=== PATIENT | male | born 1970 | race Caucasian/White ===

== ENCOUNTER 2019-06-14 17:29 | Emergency (ER) | payer OTHER ==
--- OUTSIDE RECORDS SUMMARY | 2019-06-14 18:23 | XMS REPORT | Continuity of Care Document ---
:1970 External Reference #:[id number] Author Name Kolby Hogue M.D. Address [address] [facility] [address] [place] [address] Care Team Providers Name Role Phone HCP given Care Team Information Expressive Art Therapist Unavailable Sleep [facility] - Sleep Disorder Care Team Information Expressive Art Therapist [phone] [facility] - Spec/[facility], Care Team Information Expressive Art Therapist Cardiovascular Yolande Baron, RD, CDN, Cde - Care Team Information Expressive Art Therapist Dietitian, Registered Problems Active Problems Provider Date Benign essential hypertension Kolby Hogue M.D. Onset: 03/03/2010 Pure hypercholesterolemia Kolby Hogue M.D. Onset: 03/03/2010 Chronic prostatitis Kolby Hogue M.D. Onset: 03/03/2010 Generalized anxiety disorder Kolby Hogue M.D. Onset: 03/03/2010 Dizziness and giddiness Richmond Armstrong D.ONima Onset: 01/26/2014 Essential hypertension Kolby Hogue M.D. Onset: 11/04/2015 Pruritus of skin Kolby Hogue M.D. Onset: 05/06/2016 Reduced libido Kolby Hogue M.D. Onset: 05/06/2016 Dysthymia Kolby Hogue M.D. Onset: 05/06/2016 Social History Type Date Description Comments Sex Unknown Tobacco Use Reviewed: 05/01/15 Never Smoked Cigarettes Smoking Status Reviewed: 03/17/19 Never Smoked Cigarettes ETOH Use Occasionally consumes 3-4 drinks/wk alcohol Tobacco Use Start: Unknown Non Smoker Exercise Type/Frequency Does not exercise Allergies, Adverse Reactions, Alerts Active Allergies Reaction Severity Comments Date No Known Drug Allergy 03/03/2010 Medications Active Medications SIG Qnty Indications Ordering Provider Date Multi Vitamin 1 by mouth every Unknown 06/08/2019 Tablets day Escitalopram Oxalate 1 tablet daily; 90tabs F34.1 Kolby Hogue, 2018 10mg for mood M.D. Tablets F41.1 Vardenafil HCL 1 tablet daily as 6tabs N52.9 Kolby Hogue, 04/24/2019 20mg needed for ED M.D. Tablets Co Q-10 Kolby Hogue, 03/16/2019 30mg Capsules M.D. Rosuvastatin Calcium take one tablet by 90tabs E78.00 Kolby Hogue, 07/2019 20mg mouth every day for M.D. Tablets high cholesterol to replace 10mg Buspirone HCL take one tablet by 180tabs F41.1 Kolby Hogue, 08/29/2018 10mg mouth twice a day M.D. Tablets for anxiety Triamcinolone Apply Thin Layer To 80units L29.9 Kolby Hogue, 2016 Acetonide Affected Area On M.D. 0.1% Cream Arms And Back Of Neck Two Times A Day as Needed For Itchy Rash Doxepin HCL take one capsule by 90caps L29.9 Kolby Hogue, 11/28/2016 50mg Capsules mouth every evening M.D. for itch Losartan Potassium take one tablet by 90tabs I10 Kolby Hogue, 2010 50mg mouth every day for M.D. Tablets high blood pressure Naproxen 1 by mouth twice a 180tabs 601.1 Kolby Hogue, 03/03/2010 500mg Tablets day prn; take w/ M.D. food Blood Pressure Monitor automated digital 1units I10 Kolby Hogue, 03/03 unit for upper arm; M.D. Misc use as directed Immunizations CPT Code Status Date Vaccine Lot # [id number] Given 05/24/2019 Hep B Immunization, Adult [id number] 83939 Given 03/23/2019 Hep B Immunization, Adult [id number] 31641 Given 03/17/2019 Menactra Menningitis Vaccine [id number] 03715 Given 03/17/2019 Td Immunization [id number] 45492 Given 03/17/2019 MMR Virus Immunization [id number] 33316 Given 03/17/2019 Hep A, Adult [id number] 80336 Given 06/01/2018 Influenza Virus Vaccine, Quadrivalent, Split, [id number] Preservative Free 90192 Given 05/28/2017 Influenza Virus Vaccine, Quadrivalent, Split, [id number] Preservative Free 22073 Given 06/26/2013 Flu, Split Virus 3Yrs [id number] 94645 Given 08/28/2011 Flu, Split Virus 3Yrs [id number] 92115 Given 03/03/2010 Adacel or Boostrix, TDaP [id number] Vital Signs Date Vital Result Comment 06/09/2019 10:20am BP Systolic 114 mmHg BP Diastolic 80 mmHg Weight 206.00 lb 04/24/2019 8:54am BP Systolic 126 mmHg BP Diastolic 82 mmHg BP Systolic Recheck 112 mmHg R arm sitting BP Diastolic Recheck 68 mmHg R arm sitting BP Systolic Standing Resting Right Arm 118 mmHg BP Diastolic Standing Resting Right Arm 80 mmHg Heart Rate 72 /min reg Weight 212.00 lb w/boots Results Test Date Facility Test Result H/L Range Note Lipid Profile 05/24/2019 [facility] Triglycerides 181 mg/dL 1 (Trig/Chol/HDL) [phone] Cholesterol 164 mg/dL 2 HDL Cholesterol 49.6 mg/dL 3 LDL Cholesterol 78 mg/dL 4 Laboratory test finding 05/24/2019 [facility] Alt 28 U/L Normal 7-52 5 [phone] Basic Metabolic Panel 05/24/2019 [facility] Sodium 139 mmol/L Normal 135-145 [phone] Potassium 4.3 mmol/L Normal 3.5-5.0 Chloride 106 mmol/L Normal 101-111 Co2 Carbon Dioxide 27 mmol/L Normal 22-32 Anion Gap 6 mmol/L Normal 2-11 Glucose 102 mg/dL High 70-100 Blood Urea Nitrogen 15 mg/dL Normal 6-24 Creatinine 1.00 mg/dL Normal 0.67-1.17 BUN/Creatinine Ratio 15.0 Normal 8-20 Calcium 9.5 mg/dL Normal 8.6-10.3 Egfr Non- 79.8 >60 Egfr 96.5 >60 6 Quantiferon Gold 03/17/2019 [facility] QuantiFERON-Tb Gold Negative Negative 7 TB [phone] Plus TB1 Ag minus Nil Result -0.03 IU/mL TB2 Ag minus Nil Result -0.05 IU/mL TB Mitogen minus Nil Result > 10.00 IU/mL TB Nil Result 0.18 IU/mL 8 Poliovirus AB Immune 03/17/2019 [facility] Polio Virus Type 1 1:16 Status [phone] Antibody Polio Virus Type 3 Antibody 1:64 9 Varicella Zoster 03/17/2019 [facility] Varicella-Zoster IgG Positive 10 Igg AB [phone] Antibody Varicella IgG Antibody Index 1.5 11 Laboratory test 03/17/2019 [facility] Hepatitis B Not Immune Abnormal Immune finding [phone] Khushboo AB Titer 1 Desirable: <150 Borderline High: 150-199 High: 200-499 Very High: >500 2 Desirable: <200 Borderline High: 200-239 High: >239 3 Low: <40 Desirable: 40-60 High: >60 4 Desirable: <100 Near Optimal: 100-129 Borderline High: 130-159 High: 160-189 Very High: >189 5 FASTING 12 HOUR 6 Because ethnic data is not always readily available, this report includes an eGFR for both -Americans and non- Americans. The National Kidney Disease Education Program (NKDEP) does not endorse the use of the MDRD equation for patients that are not between the ages of 18 and 70, are , have extremes of body size, muscle mass, or nutritional status, or are non- or non-. According to the National Kidney Foundation, irrespective of diagnosis, the stage of the disease is based on the level of kidney function: Stage Description GFR(mL/min/1.73 m(2)) 1 Kidney damage with normal or decreased GFR 90 2 Kidney damage with mild decrease in GFR 60-89 3 Moderate decrease in GFR 30-59 4 Severe decrease in GFR 15-29 5 Kidney failure <15 (or dialysis) 7 No interferon-gamma response to M. tuberculosis antigens was detected. Infection with M. tuberculosis is unlikely. A single negative result does not exclude infection with M. tuberculosis. In patients at high risk for M.tuberculosis infection, a second test should be considered in accordance with the 2017 ATS/IDSA/CDC Clinical Practice Guidelines for Diagnosis of Tuberculosis in Adults and Children [Lewinsohn DM et. al. Clin. Infect. Dis. 2017;64(2):111-115]. The reference range for the 'TB1 Ag minus Nil Result' and 'TB2 Ag minus Nil Result' is an Interferon-gamma level <0.35 IU/mL. 8 Test Performed by: [place] [address] 9 REFERENCE RANGE: POLIO 1 TITER: <1:8 POLIO 3 TITER: <1:8 The presence of neutralizing serum antibodies (titers of 1:8 up to >1:128) against polioviruses implies lifelong immunity. Some persons without detectable titers (<1:8) may also be immune as demonstrated by elicitation of a secondary-type serum antibody response upon rechallenge with live polio vaccine. This test was developed and its analytical performance characteristics have been determined by [facility]. It has not been cleared or approved by FDA. This assay has been validated pursuant to the CLIA regulations and is used for clinical purposes. Test Performed by: [facility] [address] [place] [address] 10 Results suggest response to immunization or prior exposure to the virus. REFERENCE VALUE Vaccinated: Positive (>=1.1 AI) Unvaccinated: Negative (<=0.8 AI) 11 Test Performed by: [address] [address] Procedures Date Code Description Status 03/17/2019 97714 Brief Emotional/Behav Assessment W/ Scoring Doc Per Completed [facility] Medical Devices Description No Information Available Encounters Type Date Location Provider Dx Diagnosis Office Visit 04/24/2019 Main Office Kolby Hogue, F34.1 Dysthymic disorder 8:30a M.D. F41.1 Generalized anxiety disorder I10 Essential (primary) hypertension E78.00 Pure hypercholesterolemia, unspecified N52.9 Male erectile dysfunction, unspecified Office Visit 03/17/2019 2:00p Main Office Pamela Carlson Z02.89 Encounter for other P.A. administrative examinations Z23 Encounter for immunization Z41.8 Encntr for oth proc for purpose oth than [facility] Z68.31 Body mass index (BMI) 31.0-31.9, adult Assessments Date Code Description Provider 06/09/2019 F34.1 Dysthymic disorder Kolby Hogue M.D. 06/09/2019 F41.1 Generalized anxiety disorder Kolby Hogue M.D. 06/09/2019 E78.00 Pure hypercholesterolemia, unspecified Kolby Hogue M.D. 06/09/2019 I10 Essential (primary) hypertension Kolby Hogue M.D. 06/09/2019 R73.01 Impaired fasting glucose Kolby Hogue M.D. 06/09/2019 Z23 Encounter for immunization Kolby Hogue M.D. 05/24/2019 Z23 Encounter for immunization Nurse's Schedule 05/24/2019 Z41.8 Encounter for other procedures for purposes Nurse's Schedule other than [facility] 04/24/2019 F34.1 Dysthymic disorder Kolby Hogue M.D. 04/24/2019 F41.1 Generalized anxiety disorder Kolby Hogue M.D. 04/24/2019 I10 Essential (primary) hypertension Kolby Hogue M.D. 04/24/2019 E78.00 Pure hypercholesterolemia, unspecified Kolby Hogue M.D. 04/24/2019 N52.9 Male erectile dysfunction, unspecified Kolby Hogue M.D. 03/23/2019 Z23 Encounter for immunization Nurse's Schedule 03/23/2019 Z41.8 Encounter for other procedures for purposes Nurse's Schedule other than remed 03/17/2019 Z02.89 Encounter for other administrative Arianne Rose examinations 03/17/2019 Z23 Encounter for immunization Arianne Rose 03/17/2019 Z41.8 Encounter for other procedures for purposes Arianne Rose other than remed 03/17/2019 Z68.31 Body mass index (BMI) 31.0-31.9, adult Pamela Medford, P.A. Plan of Treatment Future Appointment(s):09/22/2019 9:00 am - Nurse's Schedule at Main [id number] - Arianne RoseZ02.89 Encounter for other administrative [id number] Encounter for immunizationComments:Counseling done regarding risks and benefits of vaccines, previous vaccine reactions and possible contraindications to vaccine discussed, and pt's questions answered. Pt agreed to vaccination. VIS sheets given for Td, Menactra, Hep A and MMR.Z41.8 Encounter for other procedures for purposes other than cmlmyE54.31 Body mass index (BMI) 31.0-31.9, adult Functional Status Description No Information Available Mental Status Description No Information Available Referrals Description No Information Available
--- OUTSIDE RECORDS SUMMARY | 2019-06-14 18:23 | XMS REPORT | Continuity of Care Document ---
:1970 External Reference #:[id number] Author Name Milton Tucker M.D., [facility], [facility] (transmitted by agent of provider Leola Campoverde) Address [address] [place] [id number] Care Team Providers Name Role Phone Kolby Hogue MD - Internal Care Team Information Insole Buffer [phone] Medicine Problems Active Problems Provider Date Thoracic aortic ectasia Milton Tucker M.D., [facility] Onset: 06/07/2019 Difficulty breathing Milton Tucker M.D., [facility] Onset: 11/23/2018 Social History Type Date Description Comments Sex Unknown ETOH Use Occasionally consumes 3-4 drinks per week alcohol Tobacco Use Start: Unknown Patient has never smoked Recreational Drug Use Denies Drug Use Smoking Status Reviewed: 06/07/19 Patient has never smoked Exercise Type/Frequency Exercises sporadically Allergies, Adverse Reactions, Alerts Description No Known Drug Allergies Medications Active Medications SIG Qnty Indications Ordering Provider Date Buspirone HCL 1 by mouth twice Unknown 10mg a day Tablets Doxepin HCL 1 tab by mouth Unknown 50mg Capsules every day at bedtime Crestor 1 by mouth every Unknown 20mg Tablets day Losartan Potassium 1 by mouth every Unknown 50mg day Tablets Naproxen 1 by mouth twice Unknown 500mg Tablets a day prn Multivitamin Adult 1 by mouth every Unknown day Tablets Qunol Ultra Coq10 1 gel cap po qd Unknown [phone] Capsules Escitalopram Oxalate 1 by mouth every Unknown 10mg day Tablets Immunizations Description No Information Available Vital Signs Date Vital Result Comment 06/07/2019 9:06am Height 69 inches 5'9" Weight 210.00 lb with shoes Heart Rate 80 /min BP Systolic Sitting 120 mmHg lue reg cuff BP Diastolic Sitting 78 mmHg lue reg cuff BP Systolic Standing 122 mmHg lue reg cuff BP Diastolic Standing 78 mmHg lue reg cuff Respiratory Rate 14 /min BMI (Body Mass Index) 31.0 kg/m2 Ejection Fraction 55-60% echo. 12/05/18 11/23/2018 1:15pm Height 69 inches 5'9" Weight 226.00 lb no shoes Heart Rate 80 /min BP Systolic Sitting 126 mmHg lue large cuff BP Diastolic Sitting 80 mmHg lue large cuff BP Systolic Standing 110 mmHg lue large cuff BP Diastolic Standing 78 mmHg lue large cuff Respiratory Rate 18 /min BMI (Body Mass Index) 33.4 kg/m2 Results Test Date Facility Test Result H/L Range Note Laboratory test 12/14/2018 [facility] B-Type Natriuretic 11 pg/ mL <=[address] [place] [address] [phone] Procedures Date Code Description Status 06/07/2019 38871 EKG Tracing & Interpretation Completed 04/10/2019 85500 Stress Test Completed Medical Devices Description No Information Available Encounters Description No Information Available Assessments Date Code Description Provider 06/07/2019 I77.810 Thoracic aortic ectasia Milton Tucker M.D., [facility] 04/10/2019 R06.00 Dyspnea, unspecified Milton Tucker M.D., [facility] Plan of Treatment 06/07/2019 - Milton Tucker M.D., [facility], AJWCUI08.810 Thoracic aortic ectasiaNew Orders:Echocardiogram, Ordered: 06/07/19Comments:As discussed, your heart function and stress test looks fine. Your aorta is mildly enlarged so we will watch that and please avoid lifting weights more than 30 lbs. I do not feel your prior shortness of breath was heart related. I do not feel your blood pressure needs to be lowered. Please avoid Naproxen and use Tylenol as needed.Follow up:one year after echo Functional Status Description No Information Available Mental Status Description No Information Available Referrals Description No Information Available
--- OUTSIDE RECORDS SUMMARY | 2019-06-14 18:23 | XMS REPORT | Continuity of Care Document ---
:1970 External Reference #:[id number] Author Name Kolby Hogue M.D. Address [address] [facility] [address] [place] [address] Care Team Providers Name Role Phone HCP given Primary Care Physician Unavailable Payers Date Identification Numbers Payment Provider Subscriber Effective: 2012 Policy Number: [id number] [employer] [facility] Roberto Sands Group Name: [employer] [address] PayID: [id number] [place] [address] Problems Active Problems Provider Date Benign essential hypertension Kolby Hogue M.D. Onset: 03/03/2010 Pure hypercholesterolemia Kolby Hogue M.D. Onset: 03/03/2010 Chronic prostatitis Kolby Hogue M.D. Onset: 03/03/2010 Generalized anxiety disorder Kolby Hogue M.D. Onset: 03/03/2010 Dizziness and giddiness Richmond Armstrong D.O. Onset: 01/26/2014 Essential hypertension Kolby Hogue M.D. Onset: 11/04/2015 Pruritus of skin Kolby Hogue M.D. Onset: 05/06/2016 Reduced libido Kolby Hogue M.D. Onset: 05/06/2016 Dysthymia Kolby Hogue M.D. Onset: 05/06/2016 Family History Date Family Member(s) Observation Comments General Diabetes, Nos one of 9 maternal aunts/uncles General No info on father; they never met.Step father at age 54 of an MS : (age 41 Mother due to Aneurysm Years) Brain Number of Children 2 Number of Siblings Siblings: none Social History Type Date Description Comments Sex Unknown Education Highest Level Completed College Marital Status Occupation [employer]; mainly administrative work Tobacco Use Reviewed: Never Smoked 05/01/15 Cigarettes Smoking Status Reviewed: Never Smoked 03/17/19 Cigarettes ETOH Use Occasionally consumes 3-4 drinks/wk alcohol Tobacco Use Start: Unknown Non Smoker Exercise Does not exercise Type/Frequency Age 1st [place] 17 Years Old # Partners in a over 10 Lifetime Allergies, Adverse Reactions, Alerts Active Allergies Reaction Severity Comments Date No Known Drug Allergy 03/03/2010 Medications Active Medications SIG Qnty Indications Ordering Provider Date Escitalopram Oxalate 1/2 by mouth 30tabs F34.1 Kolby Hogue, 04/24/2019 10mg every day for 1 M.D. Tablets week then 1 tablet daily; for mood F41.1 Vardenafil HCL 1 tablet daily as 6tabs N52.9 Kolby Hogue, 04/24/2019 20mg needed for ED M.D. Tablets Co Q-10 Kolby Hogue, 03/16/2019 30mg Capsules M.D. Rosuvastatin Calcium Take One Tablet By 30tabs E78.00 Kolby Hogue, 07/2019 20mg Mouth Every Day For M.D. Tablets High Cholesterol To Replace 10MG Buspirone HCL Take 1/2 Tablet By 60tabs F41.1 Richmond Armstrong, 08/29/2018 10mg Mouth Two Times A D.O. Tablets Day For 1-2 Weeks,Then Increase To Take One Tablet By Mouth Twice A Day For Anxiety Triamcinolone Apply Thin Layer To 80units L29.9 Kolby Hogue, 2016 Acetonide Affected Area On M.D. 0.1% Cream Arms And Back Of Neck Two Times A Day as Needed For Itchy Rash Doxepin HCL take one capsule by 30caps L29.9 Kolby Hogue, 11/28/2016 50mg Capsules mouth every evening M.D. for itch Losartan Potassium Take One Tablet By 30tabs I10 Kolby Hogue, 2010 50mg Mouth Every Day For M.D. Tablets High Blood Pressure Blood Pressure Monitor automated digital 1units I10 Kolby Hogue, 03/03 unit for upper arm; [facility] Naproxen 1 by mouth twice a 180tabs 601.1 Kolby Hogue, 03/03/2010 500mg Tablets day prn; take w/ M.D. food History Medications Tadalafil 1/2-1 tab by mouth 18tabs N52.9 Kolby Hogue, 10/24/2018 - 20mg as needed for M.D. 04/24/2019 Tablets erectile dysfunction Sertraline HCL 1 tablet by mouth F41.1 Kolby Hogue, 06/01/2018 - every day for 1 M.D. 06/15/2018 100mg Tablets week then 1/2 tablet/day for 1 week then stop it F34.1 Sertraline HCL 2 tablets by mouth F41.1 Unknown 05/31/2018 - 06/01/2018 100mg Tablets every day for mood F34.1 Nystatin apply to affected 30gm B37.2 Lennie, 11/26/2017 - area(s) around Rosario Jarrett 03/16/2019 [id number] Cream anus/buttocks three times a day until clear; resume as needed Sertraline HCL Take 1+1/2 Tablets 135tabs F41.1 Lennie, 11/25/2017 - 100mg By Mouth Every Day Rosario Jarrett 05/31/2018 Tablets For Mood F34.1 Sertraline HCL Take 1+1/2 135tabs F41.1 Kolby Hogue, 05/06/2016 - Tablets By Mouth M.D. 11/25/2017 100mg Tablets Every Day For Mood F34.1 Crestor Take One Tablet By 30tabs E78.00 Lennie, 05/01/2015 - 20mg Tablets Mouth Every Day Rosario Jarrett 12/05/2018 For High Cholesterol To Replace 10MG Doxepin HCL 2-3 by mouth every 450caps L29.9 Lennie, 10/31/2014 - 10mg night; january Rosario Jarrett 11/28/2016 Capsules increase up to 5 pills/night if needed; for itch Crestor take one tablet by 90tabs 272.0 Lennie, 01/29/2014 - 10mg Tablets mouth every day Rosario Jarrett 05/01/2015 for high cholesterol Cheratussin ac 1-2 tsp q4-6hr, 75ml 786.2 Silco, 11/10/2013 - prn, generic ok Roasrio Jarrett 12/26/2013 100-10mg/5ML Syrup Amoxicillin 2 tab po bid x 10 [facility]caps [facility]8 [facility] 500[facility] days Rosario Jarrett 12/26/2013 Capsules Transderm-Scop apply 1 patch prn 2units V65.49 Silco, 06/26/2013 - 1.5mg as directed, for Rosario Jarrett 07/26/2013 Patches 72HR sea sickness Losartan Potassium 1 by mouth every 30tabs 401.1 Pancho Armas 08/29/2012 - 50mg day for high blood Rosario Zheng 09/28/2012 Tablets pressure Sertraline HCL 1 by mouth every 90tabs F41.1 Lennie, 08/29/2012 - 100mg day for mood Rosario Jarrett 05/06/2016 Tablets Sertraline HCL 1 a day 30tabs 401.1 Pancho Armas 08/29/2012 - 100mg Rosario Zheng 09/28/2012 Tablets Lisinopril alternate 1 pill 60tabs 401.1 Lennie, 05/29/2011 - 10mg Tablets daily with 1/2 Rosario Jarrett 08/28/2011 pill daily; for high blood presure Lisinopril 1 by mouth every 90tabs 401.1 Lennie, 01/22/2011 - 10mg Tablets day for high blood Rosario Jarrett 05/29/2011 pressure Sertraline HCL Take One And 135tabs 300.02 Pancho Armas 01/05/2011 - 50mg One-Half Tablets Rosario Zheng 08/29/2012 Tablets Daily; appt needed before next refill Lisinopril take 1 tablet 90tabs 401.1 Lennie, 12/08/2010 - 5mg Tablets daily for high Rosario Jarrett 01/22/2011 blood pressure Cephalexin 1 by mouth three 21tabs 682.3 Lennie, 11/19/2010 - 500mg times a day for 1 Rosario Jarrett 11/26/2010 Tablets week, for skin infection Sertraline HCL 1/2 po qd for 1 60tabs 300.02 Silcoff, 11/05/2010 - 50mg week then 1 po qd Rosario Jarrett 01/05/2011 Tablets for 3wks then 2 po qd Levitra 1/2-1 pill as 6tabs 607.84 Silcoff, 07/29/2010 - 20mg Tablets needed once daily Rosario Jarrett 10/30/2014 Viagra /2-1 po qd prn 6tabs 607.84 Silcoff, 07/29/2010 - 100mg Tablets Rosario Jarrett 12/07/2010 Simvastatin 1 tablet by jacques 90tabs 272.0 Silcoff, 05/23/2010 - 40mg once daily for Rosario Jarrett 01/29/2014 Tablets high cholesterol Chlorthalidone 1 pill every 90tabs 401.1 Silcoff, 05/23/2010 - 25mg morning for high Rosario Jarrett 12/31/2010 Tablets blood pressure; (start this 1 month after starting simvastatin) Valtrex 2 po q12h x2 doses 8tabs 054.9 Silcoff, 05/23/2010 - 1gm Tablets at first sign of Rosario Jarrett 12/31/2010 cold sore Immunizations CPT Code Status Date Vaccine Lot # [id number] Given 03/23/2019 Hep B Immunization, Adult [id number] 26082 Given 03/17/2019 Menactra Menningitis Vaccine [id number] 12142 Given 03/17/2019 Td Immunization [id number] 36997 Given 03/17/2019 MMR Virus Immunization [id number] 91369 Given 03/17/2019 Hep A, Adult [id number] 95421 Given 06/01/2018 Influenza Virus Vaccine, Quadrivalent, Split, [id number] Preservative Free 99187 Given 05/28/2017 Influenza Virus Vaccine, Quadrivalent, Split, [id number] Preservative Free 33360 Given 06/26/2013 Flu, Split Virus 3Yrs [id number] 98784 Given 08/28/2011 Flu, Split Virus 3Yrs [id number] 63520 Given 03/03/2010 Adacel or Boostrix, TDaP [id number] Vital Signs Date Vital Result Comment 04/24/2019 8:54am BP Systolic 126 mmHg BP Diastolic 82 mmHg BP Systolic Recheck 112 mmHg R arm sitting BP Diastolic Recheck 68 mmHg R arm sitting BP Systolic Standing Resting Right Arm 118 mmHg BP Diastolic Standing Resting Right Arm 80 mmHg Heart Rate 72 /min reg Weight 212.00 lb w/boots 03/17/2019 2:20pm BP Systolic 132 mmHg BP Diastolic 86 mmHg Height 68.25 inches 5'8.25" Weight 210.00 lb BMI (Body Mass Index) 31.7 kg/m2 10/24/2018 10:37am BP Systolic 110 mmHg BP Diastolic 76 mmHg Weight 228.00 lb 07/11/2018 11:04am BP Systolic 134 mmHg BP Diastolic 86 mmHg Weight 217.00 lb 06/01/2018 9:09am BP Systolic 128 mmHg BP Diastolic 72 mmHg Height 70.25 inches 5'10.25" with shoes Weight 230.00 lb with shoes BMI (Body Mass Index) 32.8 kg/m2 11/26/2017 9:28am BP Systolic 118 mmHg BP Diastolic 86 mmHg BP Systolic Recheck 122 mmHg R arm sitting BP Diastolic Recheck 76 mmHg R arm sitting Height 70.50 inches 5'10.50" Weight 232.00 lb w/boots and coat BMI (Body Mass Index) 32.8 kg/m2 05/28/2017 10:36am BP Systolic 126 mmHg BP Diastolic 60 mmHg Weight 227.50 lb dec taking boots off 11/28/2016 9:41am BP Systolic 110 mmHg BP Diastolic 85 mmHg BP Systolic Recheck 130 mmHg R arm sitting BP Diastolic Recheck 88 mmHg R arm sitting Height 70.5 inches 5'10.50" with boots Weight 226.00 lb with boots BMI (Body Mass Index) 32.0 kg/m2 05/06/2016 8:39am BP Systolic 106 mmHg per RN BP Diastolic 68 mmHg per RN BP Systolic Recheck 118 mmHg R arm sitting BP Diastolic Recheck 80 mmHg R arm sitting Weight 213.00 lb 11/04/2015 9:42am BP Systolic 120 mmHg BP Diastolic 76 mmHg BP Systolic Recheck 134 mmHg R arm sitting BP Diastolic Recheck 90 mmHg R arm sitting Heart Rate 68 /min reg Height 69 inches 5'9" Weight 222.00 lb BMI (Body Mass Index) 32.8 kg/m2 05/01/2015 8:53am BP Systolic 120 mmHg BP Diastolic 80 mmHg BP Systolic Recheck 126 mmHg R arm sitting BP Diastolic Recheck 86 mmHg R arm sitting Heart Rate 60 /min reg Height 69 inches 5'9" Weight 210.00 lb BMI (Body Mass Index) 31.0 kg/m2 10/31/2014 1:53pm BP Systolic 118 mmHg BP Diastolic 86 mmHg BP Systolic Recheck 130 mmHg R arm sitting BP Diastolic Recheck 92 mmHg R arm sitting Weight 218.00 lb shoes on 01/29/2014 3:27pm BP Systolic 124 mmHg BP Diastolic 90 mmHg BP Systolic Recheck 136 mmHg R arm lying; 122/82 then 128/90 standing BP Diastolic Recheck 88 mmHg R arm lying; 122/82 then 128/90 standing Heart Rate 60 /min reg Respiratory Rate 12 /min not laboured 01/26/2014 11:44am BP Systolic 120 mmHg BP Diastolic 92 mmHg BP Systolic Recheck 122 mmHg BP Diastolic Recheck 92 mmHg Body Temperature 98.1 F Weight 212.00 lb 11/10/2013 1:29pm BP Systolic 140 mmHg BP Diastolic 87 mmHg Heart Rate 96 /min Body Temperature 97.5 F Weight 220.00 lb w/shoes 06/26/2013 10:16am BP Systolic 118 mmHg BP Diastolic 86 mmHg Heart Rate 72 /min reg Respiratory Rate 12 /min not laboured Height 70 inches 5'10" Weight 206.00 lb BMI (Body Mass Index) 29.6 kg/m2 08/29/2012 4:55pm BP Systolic 122 mmHg BP Diastolic 79 mmHg Heart Rate 75 /min Respiratory Rate 15 /min Weight 218.00 lb Last Menstrual Period 0 08/28/2011 3:18pm BP Systolic 120 mmHg BP Diastolic 80 mmHg Heart Rate 66 /min reg Respiratory Rate 12 /min not laboured Weight 211.00 lb 05/29/2011 4:40pm BP Systolic 104 mmHg BP Diastolic 68 mmHg BP Systolic Recheck 102 mmHg R arm sitting BP Diastolic Recheck 62 mmHg R arm sitting Height 68.50 inches 5'8.50" Weight 204.00 lb BMI (Body Mass Index) 30.6 kg/m2 02/20/2011 4:17pm BP Systolic 100 mmHg BP Diastolic 80 mmHg BP Systolic Recheck 112 mmHg R arm sitting BP Diastolic Recheck 80 mmHg R arm sitting Weight 205.00 lb Last Menstrual Period 0 01/20/2011 4:15pm BP Systolic 118 mmHg BP Diastolic 76 mmHg BP Systolic Recheck 120 mmHg L arm sitting BP Diastolic Recheck 90 mmHg L arm sitting Weight 209.00 lb 12/08/2010 1:19pm BP Systolic 128 mmHg BP Diastolic 96 mmHg BP Systolic Recheck 134 mmHg R arm sitting BP Diastolic Recheck 92 mmHg R arm sitting Body Temperature 98.1 F Weight 197.00 lb 11/19/2010 4:45pm BP Systolic 126 mmHg BP Diastolic 84 mmHg Body Temperature 97.7 F Height 68 inches 5'8" Weight 200.00 lb BMI (Body Mass Index) 30.4 kg/m2 07/29/2010 5:14pm BP Systolic 128 mmHg BP Diastolic 84 mmHg BP Systolic Recheck 134 mmHg R arm sitting BP Diastolic Recheck 86 mmHg R arm sitting Weight 200.00 lb 05/23/2010 3:06pm BP Systolic 130 mmHg rt arm BP Diastolic 96 mmHg rt arm BP Systolic Recheck 128 mmHg R arm sitting BP Diastolic Recheck 94 mmHg R arm sitting Weight 202.00 lb 03/03/2010 3:44pm BP Systolic 134 mmHg BP Diastolic 80 mmHg BP Systolic Recheck 162 mmHg R arm sitting; 144/107 w/ auto cuff BP Diastolic Recheck 114 mmHg R arm sitting; 144/107 w/ auto cuff Heart Rate 76 /min reg Respiratory Rate 12 /min not laboured Height 68.5 inches 5'8.50" Weight 194.00 lb BMI (Body Mass Index) 29.1 kg/m2 Results Test Date Facility Test Result H/L Range Note Quantiferon Gold TB 03/17/2019 [facility] QuantiFERON- Negative Negative 7 [phone] Tb Gold Plus TB1 Ag minus Nil Result -0.03 IU/mL TB2 Ag minus Nil Result -0.05 IU/mL TB Mitogen minus Nil Result > 10.00 IU/mL TB Nil Result 0.18 IU/mL 2 Poliovirus AB Immune 03/17/2019 [facility] Polio Virus Type 1 1:16 Status [phone] Antibody Polio Virus Type 3 Antibody 1:64 3 Varicella Zoster 03/17/2019 [facility] Varicella-Zoster IgG Positive 4 Igg AB [phone] Antibody Varicella IgG Antibody Index 1.5 5 Laboratory test 03/17/2019 [facility] Hepatitis B Not Immune Abnormal Immune finding [phone] Khushboo AB Titer Comp Metabolic 07/04/2018 [facility] Sodium 139 mmol/L Normal 135- 145 Panel [phone] Potassium 4.6 mmol/L Normal 3.5-5.0 Chloride 107 mmol/L Normal 101-111 Co2 Carbon Dioxide 27 mmol/L Normal 22-32 Anion Gap 5 mmol/L Normal 2-11 Glucose 108 mg/dL High 70-100 Blood Urea Nitrogen 17 mg/dL Normal 6-24 Creatinine 1.16 mg/dL Normal 0.67-1.17 BUN/Creatinine Ratio 14.7 Normal 8-20 Calcium 9.2 mg/dL Normal 8.6-10.3 Total Protein 6.5 g/dL Normal 6.4-8.9 Albumin 4.1 g/dL Normal 3.2-5.2 Globulin 2.4 g/dL Normal 2-4 Albumin/Globulin Ratio 1.7 Normal 1-3 Total Bilirubin 0.50 mg/dL Normal 0.2-1.0 Alkaline Phosphatase 70 U/L Normal 34-104 Alt 26 U/L Normal 7-52 Ast 20 U/L Normal 13-39 Egfr Non- 67.5 >60 Egfr 81.7 >60 6 Protein 07/04/2018 [facility] Total 6.7 g/dL 6.3 - Electrophoresis [phone] Protein(Pep) 7.9 Albumin 3.4 g/dL 3.4-4.7 Alpha-1 Globulin 0.2 g/dL 0.1-0.3 Alpha-2 Globulin 0.8 g/dL 0.6-1.0 Beta Globulin 1.2 g/dL 0.7-1.2 Gamma Globulin 1.1 g/dL 0.6-1.6 Albumin/Globulin Ratio 1.04 Impression See Comment 7 Pemphigus/Pemphigoid AB 07/04/2018 [facility] Cell Surface Negative Negative [phone] IgG Antibody Cutaneous Basement Membrane AB Negative Negative Monkey Esophagus IgG Negative Negative Human Split Skin IgG Antibody Negative Negative Skin Antibodies See Comment 8 CBC Auto Diff 07/04/2018 [facility] White Blood 6.3 10^3/uL Normal 3.5-10.8 [phone] Count Red Blood Count 4.87 10^6/uL Normal 4.00-5.40 Hemoglobin 14.7 g/dL Normal 14.0-18.0 Hematocrit 42 % Normal 42-52 Mean Corpuscular Volume 87 fL Normal 80-94 Mean Corpuscular Hemoglobin 30 pg Normal 27-31 Mean Corpuscular HGB Conc 35 g/dL Normal 31-36 Red Cell Distribution Width 13 % Normal 10.5-15 Platelet Count 145 10^3/uL Low 150-450 Mean Platelet Volume 8.3 um3 Normal 7.4-10.4 Abs Neutrophils 4.4 10^3/uL Normal 1.5-7.7 Abs Lymphocytes 1.4 10^3/uL Normal 1.0-4.8 Abs Monocytes 0.4 10^3/uL Normal 0-0.8 Abs Eosinophils 0.1 10^3/uL Normal 0-0.6 Abs Basophils 0 10^3/uL Normal 0-0.2 Abs Nucleated RBC 0 10^3/uL Granulocyte % 69.5 % Normal 38-83 Lymphocyte % 22.7 % Low 25-47 Monocyte % 6.0 % Normal 0-7 Eosinophil % 1.2 % Normal 0-6 Basophil % 0.6 % Normal 0-2 Nucleated Red Blood Cells % 0.2 Laboratory 07/04/2018 [facility] TSH (Thyroid 1.35 Normal 0.34-5.60 9 test finding [phone] Stim Horm) mcIU/mL Lipid Profile 07/04/2018 [facility] Triglycerides 281 mg/dL 10 (Trig/Chol/HD [phone] L) Cholesterol 209 mg/dL 11 HDL Cholesterol 44.5 mg/dL 12 LDL Cholesterol 108 mg/dL 13 Laboratory test 07/04/2018 [facility] Alt 26 U/L Normal 7-52 14 finding [phone] Lipid Profile 05/28/2017 [facility] Triglycerides 405 mg/dL Normal 15 (Trig/Chol/HDL) [phone] Cholesterol 225 mg/dL Normal 16 HDL Cholesterol 44.2 mg/dL Normal 17 LDL Cholesterol (SEE NOTE) mg/dL Normal 18 Basic Metabolic Panel 05/28/2017 [facility] Sodium 138 mmol/L Normal 133-145 [phone] Potassium 4.2 mmol/L Normal 3.5-5.0 Chloride 103 mmol/L Normal 101-111 Co2 Carbon Dioxide 28 mmol/L Normal 22-32 Anion Gap 7 mmol/L Normal 2-11 Glucose 95 mg/dL Normal 70-100 Blood Urea Nitrogen 17 mg/dL Normal 6-24 Creatinine 1.18 mg/dL High 0.67-1.17 BUN/Creatinine Ratio 14.4 Normal 8-20 Calcium 9.7 mg/dL Normal 8.6-10.3 Egfr Non- 66.5 Normal >60 Egfr 85.5 Normal >60 19 Laboratory test finding 05/28/2017 [facility] Alt (SGPT) 22 U/L Normal 7-52 [phone] Urine Micro Inhouse 05/06/2016 In House Ua WBC - 20 Ua RBC 0-2 Ua Casts - Ua Epi - Ua Other - Ua Glucose - Ua Bilirubin - Ua Ketones - Ua Specific [place] 1.030 Ua Blood tr Ua PH 5.0 Ua Protein - Ua Urobilinogen - Ua Nitrite - Ua Leukocytes - Testosterone,Serum 11/15/2015 [facility]. Testosterone,Serum [phone] 21 LABORATORY ng/dL [phone] Comment See Note 22 Laboratory test finding 11/15/2015 [facility]. SGPT/Alt 42 U/L 12-78 LABORATORY [phone] Thyroid Stim Hormone 1.76 uIU/mL 0.36-3.74 Testosterone Free Direct 13.4 pg/mL 6.8-21.5 LDL Cholesterol 11/15/2015 [facility] Cholesterol 241 mg/dL High <200 23 Profile LABORATORY [phone] Triglycerides 315 mg/dL High <150 24 HDL Cholesterol 39 mg/dL Low >40 25 LDL-Cholesterol 139 mg/dL < 100 26 Basic Metabolic Panel 11/15/2015 [facility] Glucose 103 mg/dL 74-106 LABORATORY [phone] BUN 17 mg/dL 7-18 Creatinine 1.2 mg/dL 0.6-1.3 Glom Filtration Rate, Estimate >60 mL/min >60 If >60 mL/min >60 27 BUN/Creat 14.1 ratio Sodium 141 mmol/L 136-145 Potassium 4.0 mmol/L 3.5-5.1 Chloride 107 mmol/L 98-107 Carbon Dioxide 29 mmol/L 21-32 Anion Gap 5 mEq/L Low 8-16 Calcium 8.8 mg/dL 8.5-10.1 Basic Metabolic Panel 05/01/2015 [facility] Sodium 136 mmol/L Normal 133-145 [phone] Potassium 4.3 mmol/L Normal 3.5-5.0 Chloride 104 mmol/L Normal 101-111 Co2 Carbon Dioxide 25 mmol/L Normal 22-32 Anion Gap 7 mmol/L Normal 2-11 Glucose 95 mg/dL Normal 70-100 Blood Urea Nitrogen 19 mg/dL Normal 6-24 Creatinine 1.13 mg/dL Normal 0.67-1.17 BUN/Creatinine Ratio 16.8 Normal 8-20 Calcium 9.4 mg/dL Normal 8.6-10.3 Egfr Non- 70.5 Normal >60 Egfr 90.7 Normal >60 28 Laboratory test 05/01/2015 [facility] Alt (SGPT) 21 U/L Normal 7-52 29 finding [phone] Lipid Profile 05/01/2015 [facility] Triglycerides 326 mg/dL Normal 30 (Trig/Chol/HDL) [phone] Cholesterol 300 mg/dL Normal 31 HDL Cholesterol 48.0 mg/dL Normal 32 LDL Cholesterol 187 mg/dL Normal 33 Lyme Igg & Igm By 01/26/2014 [facility]. Lyme AB Igg By . Western Blot LABORATORY Western Blot [phone] P93 AB Absent . P66 AB Absent . P58 AB Absent . P45 AB Absent . P41 AB Absent . P39 AB Absent . P30 AB Absent . P28 AB Absent . P23 AB Absent . P18 AB Absent . Lyme Igg WB Interpretation Negative . 34 P41 AB Absent . P39 AB Absent . P23 AB Present High . Lyme Igm WB Interpretation Negative . 35 Laboratory test 01/26/2014 [facility]. Comment See Note 36 finding LABORATORY [phone] Lyme AB/Western 01/26/2014 [facility] Lyme AB/Total < 0.91 0.00- 37 Blot Reflex LABORATORY Immunoglobulins index 0.90 [phone] Lyme Disease Antibody,QT,Igm 1.02 index High 0.00-0.90 38 Lyme AB Igm Interpretation Equivocal . Testosterone,Free/Weakly 01/26/2014 [facility]. Testosterone, Serum [phone] Bound LABORATORY ng/dL [phone] Testosterone,%Free/Weakly BND 21.3 % 9.0-46.0 Testosterone,Free+Weakly Bound 82.4 ng/dL 40.0-250.0 Laboratory test 01/26/2014 [facility]. Troponin-I < 0.02 0.00-0.50 39 finding LABORATORY ng/mL [phone] Thyroid Stim Hormone 1.90 uIU/mL 0.49-4.67 Comprehensive Metabolic 01/26/2014 [facility]. Glucose 94 mg/ dL 76-115 Panel LABORATORY [phone] BUN 14 mg/dL 5-23 Creatinine 1.1 mg/dL 0.5-1.4 Glom Filtration Rate, Estimate >60 mL/min >60 If >60 mL/min >60 40 BUN/Creat 12.7 ratio Sodium 139 mmol/L 136-145 Potassium 3.9 mmol/L 3.5-5.1 Chloride 106 mmol/L 98-107 Carbon Dioxide 26 mEq/L 18-29 Anion Gap 11 mEq/L 8-16 Calcium 9.2 mg/dL 8.5-10.1 Total Protein 8.3 g/dL High 6.3-8.0 Albumin 4.3 g/dL 3.5-5.0 Globulin 4.0 g/dL 1.9-4.3 Alb/Glob 1.1 ratio Bilirubin,Total 0.6 mg/dL 0.2-1.2 Sgot/Ast 16 U/L 16-40 SGPT/Alt 33 U/L 30-65 Alkaline Phosphatase 104 U/L 50-136 CBS W/Automated 01/26/2014 [facility]. White Blood 9.2 K/uL 3.4-10.5 Diff LABORATORY Count [phone] Red Blood Count 5.26 M/uL 4.20-5.80 Hemoglobin 15.8 gm/dL 12.8-17.0 Hematocrit 46.0 % 38.0-48.0 Mean Cell Volume 87.5 fl 80.0-96.0 Mean Corpuscular HGB 30.0 pg 27.0-33.0 Mean Corpuscular HGB Conc 34.3 g/dL 31.7-36.0 Platelet Count 183 K/uL 150-400 Red Cell Distri Width SD 42.3 fl 36-51 Red Cell Distri Width %CV 13.5 % 11.6-15.8 Mean Platelet Volume 10.3 fL 6.6-10.6 Neut% 68.8 % 33.0-73.0 Lymph % 24.0 % 17.0-56.0 Starr % 6.6 % 0.0-10.0 Eo% 0.3 % 0.0-5.0 Bas% 0.3 % 0.1-1.0 Neut# 6.32 K/uL 1.8-7.0 Lymph # 2.21 K/uL 1.2-4.0 Starr # 0.61 K/uL High 0.0-0.6 Eos # 0.03 K/uL 0.0-0.5 Baso # 0.03 K/uL Low 0.1-0.2 Laboratory test 01/26/2014 [facility]. D-Dimer, < 0.22 41 finding LABORATORY Quantitative ug/mL [phone] Lipid Profile 12/25/2013 [facility] Triglycerides 245 mg/dL 42 (Trig/Chol/HDL) [phone] Cholesterol 259 mg/dL 43 HDL Cholesterol 47.6 mg/dL 44 LDL Cholesterol 162 mg/dL 45 Laboratory test 12/25/2013 [facility] Glucose 96 mg/dL 70-100 finding [phone] Laboratory test 11/10/2013 In House Culture Throat neg finding Rapid Screen Culture Throat neg Laboratory test 06/26/2013 In House Hemoglobin A1c 5.5 finding Laboratory test 05/29/2011 In House Hemoglobin A1c 5.6 finding Lipid Profile 05/26/2011 [facility] Triglyceride 305 mg/dL High 40- 200 (Trig/Chol/HDL) [phone] Cholesterol 195 mg/dL Less Than 200 46 High Density Lipoprotein 39 mg/dL Low 40-60 47 Cholesterol/HDL Ratio 5.00 AVERAGE High 1-4.97 Low Density Lipoprotein 95 mg/dL Less Than 100 48 Laboratory test finding 05/26/2011 [facility] Alt (SGPT) 28 U/L 17- 63 [phone] Basic Metabolic Panel 05/26/2011 [facility] Sodium 136 mmol/L 135- 145 [phone] Potassium 4.4 mmol/L 3.5-5.0 Chloride 105 mmol/L 101-111 Co2 (Carbon Dioxide) 26.0 mmol/L 22-32 Anion Gap 5.0 mmol/L 2-11 49 Glucose 105 mg/dL High 70-100 BUN 15 mg/dL 6-24 Creatinine 1.1 mg/dL 0.50-1.40 One Over Creatinine 0.90 BUN/Creatinine Ratio 13.6 8-20 Calcium 9.5 mg/dL 8.1-9.9 eGFR Non- 74.1 > 60 eGFR 95.3 > 60 50 Basic Metabolic Panel 01/20/2011 [facility] Sodium 135 mmol/L 135- 145 [phone] Potassium 3.9 mmol/L 3.5-5.0 Chloride 103 mmol/L 101-111 Co2 (Carbon Dioxide) 26.0 mmol/L 22-32 Anion Gap 6.0 mmol/L 2-11 51 Glucose 81 mg/dL 70-100 BUN 16 mg/dL 6-24 Creatinine 1.10 mg/dL 0.50-1.40 One Over Creatinine 0.90 BUN/Creatinine Ratio 14.5 8-20 Calcium 9.7 mg/dL 8.1-9.9 eGFR Non- 74.1 > 60 eGFR 95.3 > 60 52 Lipid Profile 07/01/2010 [facility] Triglyceride 318 mg/dL High 40- 200 (Trig/Chol/HDL) [phone] Cholesterol 245 mg/dL High Less Than 200 53 High Density Lipoprotein 51 mg/dL 40-60 54 Cholesterol/HDL Ratio 4.80 AVERAGE 1-4.97 Low Density Lipoprotein 130 mg/dL High Less Than 100 55 Laboratory test finding 07/01/2010 [facility] Alt (SGPT) 34 U/L 17- 63 [phone] Basic Metabolic Panel 07/01/2010 [facility] Sodium 137 mmol/L 135- 145 [phone] Potassium 4.5 mmol/L 3.5-5.0 Chloride 97 mmol/L Low 101-111 Co2 (Carbon Dioxide) 30.0 mmol/L 22-32 Anion Gap 10.0 mmol/L 2-11 56 Glucose 100 mg/dL 70-100 57 BUN 16 mg/dL 6-24 Creatinine 1.30 mg/dL 0.50-1.40 One Over Creatinine 0.70 BUN/Creatinine Ratio 12.3 8-20 Calcium 10.1 mg/dL High 8.1-9.9 eGFR Non- 65.3 > 60 eGFR 79.0 > 60 58 Laboratory test finding 05/08/2010 [facility] TSH 1.32 MIU/ML 0.34- 5.60 [phone] Zinc 0.84 g/mL 0.66-1.10 59 Lipid Profile 05/08/2010 [facility] Triglyceride 235 mg/dL High 40- 200 (Trig/Chol/HDL) [phone] Cholesterol 303 mg/dL High Less Than 200 60 High Density Lipoprotein 40 mg/dL 40-60 61 Low Density Lipoprotein 216 mg/dL High Less Than 100 62 Cholesterol/HDL Ratio 7.58 AVERAGE High 1-4.97 Laboratory test 05/08/2010 [facility] Alt (SGPT) 31 U/L 17-63 finding [phone] CBC With Electronic 05/08/2010 [facility] White Blood 6.6 CUMM 4.8- 10.8 Diff [phone] Count Red Cell Count 5.24 CUMM 4.6-6.2 Hemoglobin 16.3 g/dL 14.0-18.0 Hematocrit 46 % 42-52 Mean Corpuscular Volume 88 um3 80-94 Mean Corpuscular Hemoglob 31 pg 27-31 Mean Corpuscular HGB [facility] 35 g/dL 32-36 Redcell Distribution WDTH 13 % 10.5-15 Platelet Count 206 CUMM 150-450 Mean Platelet Volume 7.6 um3 7.4-10.4 Gran % 73.2 % 38-83 Lymph % 19.1 % Low 25-47 Mononuclear % 6.7 % 1-9 Eosinophil % 0.5 % 0-6 Basophil % 0.5 % 0-2 Abs Lymphs 1.3 1.0-4.8 Abs Mononuclear 0.4 0-0.8 Absolute Neutrophil Count 4.8 1.5-7.7 Abs Eosinophils 0 0-0.6 Abs Basophils 0 0-0.2 63 Basic Metabolic Panel 05/08/2010 [facility] Sodium 140 mmol/L 135- 145 [phone] Potassium 4.1 mmol/L 3.5-5.0 Chloride 105 mmol/L 101-111 Co2 (Carbon Dioxide) 27.0 mmol/L 22-32 Anion Gap 8.0 mmol/L 2-11 64 Glucose 91 mg/dL 70-100 65 BUN 13 mg/dL 6-24 Creatinine 1.30 mg/dL 0.50-1.40 One Over Creatinine 0.70 BUN/Creatinine Ratio 10.0 8-20 Calcium 9.4 mg/dL 8.1-9.9 66 eGFR Non- 65.3 > 60 eGFR 79.0 > 60 67 1 No interferon-gamma response to M. tuberculosis antigens [...] Result' is an Interferon-gamma level <0.35 IU/mL. 2 Test Performed by: [facility] [address] [place] [address] 3 REFERENCE RANGE: POLIO 1 TITER: <1:8 POLIO [...] analytical performance characteristics have been determined by [facility]. It has not been cleared or approved by FDA. This assay has been validated pursuant to the CLIA regulations and is used for clinical purposes. Test Performed by: [facility] [address] [place] [address] 4 Results suggest response to immunization or prior exposure to the virus. REFERENCE VALUE Vaccinated: Positive (>=1.1 AI) Unvaccinated: Negative (<=0.8 AI) 5 Test Performed by: [facility] [address] [place] [address] 6 Because ethnic data is not always [...] 5 Kidney failure <15 (or dialysis) 7 RESULT: No apparent monoclonal protein on serum electrophoresis. Test Performed by: [address] [address] 8 The absence of serum cell surface and basement membrane zone IgG antibodies by cutaneous immunofluorescence testing (CIFS) does not support a diagnosis of an autoimmune mucocutaneous blistering disorder. However, this test may occasionally be negative in patients with these disorders and so the final definitive diagnosis should not be based solely on the results of serum cutaneous immunofluorescence testing (CIFS). If the clinical suspicion for an autoimmune mucocutaneous blistering disorder is high, other tests including (a) lesional skin or mucous membrane biopsy for histopathological evaluation on sections from formalin-fixed, paraffin-embedded tissue; (b) perilesional skin or mucous membrane biopsy for cutaneous immunofluorescence testing (CI-B) on frozen sections; and (c) serum testing for desmogleins 1 and 3 and/or BP180 and BP230 antibodies by HOLLY technique are recommended. Test Performed by: [address] [address] 9 FASTING 12 HOUR 10 Desirable: <150 Borderline High: 150-199 High: 200-499 Very High: >500 11 Desirable: <200 Borderline High: 200-239 High: >239 12 Low: <40 Desirable: 40-60 High: >60 13 Desirable: <100 Near Optimal: 100-129 Borderline High: 130-159 High: 160-189 Very High: >189 14 FASTING 12 HOUR 15 Desirable <150 Borderline high 150-199 High 200-499 Very High >500 16 Desirable <200 Borderline high 200-239 High >239 17 Low <40 Desirable: 40-60 High: >60 18 Unable to calculate LDL as triglyceride is > 400 19 Because ethnic data is not always readily [...] 15-29 5 Kidney failure <15 (or dialysis) 20 void, clear, yellow 21 Performed at: RN - [facility] [address] [id number] [employer] Installer: Deja Gudino MD, Phone: [phone] 22 Adult male reference interval is based on a population of lean males up to 40 years old. 23 Reference Guidelines*: Desirable: ........... < 200 mg/dL Borderline High: ..... 200-239 mg/dL High: ................ >= 240 mg/dL * The National Cholesterol Education Program (NCEP) 24 Reference Guidelines*: Normal: ............. < 150 mg/dL Borderline High: .... 150-199 mg/dL High: ............... 200-499 mg/dL Very High: .......... > 500 mg/dL * Source: National Cholesterol Education Program (NCEP) 25 Reference Guidelines*: Low HDL: ..... < 40 mg/dL Normal: ..... 40-60 mg/dL Desirable: ... > 60 mg/dL *The National Cholesterol Education Program(NCEP) 26 Reference Guidelines*: Optimal:........... <100 mg/dL Near Optimal....... 100-129 mg/dL Borderline High.... 130-159 mg/dL High............... 160-189 mg/dL Very High.......... >=190 mg/dL * Source: National Cholesterol Education Program (NCEP) 27 Note: Persistent reduction for 3 months or more in an eGFR <60 mL/min/1.73 m2 defines CKD. Patients with eGFR values >/=60 mL/min/1.73 m2 may also have CKD if evidence of persistent proteinuria is present. The original MDRD equation for estimated GFR is not valid for patients less than 18 years of age. Additional information may be found at www.kdoqi.org. 28 Because ethnic data is not always readily [...] 15-29 5 Kidney failure <15 (or dialysis) 29 FASTING 12 HOUR 30 Desirable <150 Borderline high 150-199 High 200-499 Very High >500 31 Desirable <200 Borderline high 200-239 High >239 32 Low <40 Desirable: 40-60 High: >60 33 Desirable: <100 mg/dL Near Optimal: 100-129 mg/dL Borderline High: 130-159 mg/dL High: 160-189 mg/dL Very High: >189 mg/dL 34 Positive: 5 of the following Borrelia-specific bands: 18,23,28,30,39,41,45,58, 66, and 93. Negative: No bands or banding patterns which do not meet positive criteria. 35 Note: An equivocal or positive EIA result followed by a negative Western Blot result is considered NEGATIVE. An equivocal or positive EIA result followed by a positive Western Blot is considered POSITIVE by the CDC. Positive: 2 of the following bands: 23,39 or 41 Negative: No bands or banding patterns which do not meet positive criteria. Criteria for positivity are those recommended by CDC/ASTPHLD. p23=Osp C, h12=ppwzryjtt Note: Sera from individuals with the following may cross react in the Lyme Western Blot assays: other spirochetal diseases (periodontal disease, leptospirosis, relapsing fever, yaws, and pinta); connective autoimmune (Rheumatoid Arthritis and Systemic Lupus Erythematosus and also individuals with Antinuclear Antibody); other infections ([place] Spotted Fever; Beryl-Tamayo Virus, and Cytomegalovirus). Performed at: [facility] [address] [id number] [employer] Installer: Deja Gudino MD, Phone: [phone] Performed at: [facility] [address] [id number] Solar [employer] Water Installer: Pancho Browning MD, Phone: [phone] 36 Adult male reference interval is based on a population of lean males up to 40 years old. 37 Negative <0.91 Equivocal 0.91 - 1.09 Positive >1.09 Note: The CDC currently advises that Western blot testing be performed following all equivocal or positive EIA results. Final diagnosis should include appropriate clinical findings and a positive EIA which is also positive by Western blot. 38 Negative <0.91 Equivocal 0.91 - 1.09 Positive >1.09 Note: IgM levels may peak at 3-6 weeks post infection, then gradually decline. FDA currently advises that Western Blot testing be performed following all equivocal or positive EIA results. Final diagnosis should include appropriate clinical findings and a positive EIA which is also positive by Western Blot. 39 0 - 0.5 ng/mL: No evidence of myocardial injury 0.6 - 1.4 ng/mL: Mild elevation, suggesting possible myocardial injury > 1.4 ng/mL: Consistent with myocardial injury 40 Note: Persistent reduction for 3 months or more in an eGFR <60 mL/min/1.73 m2 defines CKD. Patients with eGFR values >/=60 mL/min/1.73 m2 may also have CKD if evidence of persistent proteinuria is present. The original MDRD equation for estimated GFR is not valid for patients less than 18 years of age. Additional information may be found at www.kdoqi.org. 41 <=0.49 ug/mL - Low likelihood of DIC, DVT or Pulmonary Embolism >0.49 ug/mL - Additional testing should be done to rule out DIC, DVT, or Pulmonary embolism as clinically indicated. ([facility] has established a 97.89% negative predictive value for thrombotic disease when a cutoff value of 0.5 ug/mL is used.) 42 Desirable <150 Borderline high 150-199 High 200-499 Very High >500 43 Desirable <200 Borderline high 200-239 High >239 44 Low <40 Desirable: 40-60 High: >60 45 Desirable <100 Near Optimal 100-129 Borderline high 130-159 High 160-189 Very High >189 46 CHOLESTEROL INTERPRETATION: Desirable: Less than 200 MG/DL Borderline-High Risk: 200-239 MG/DL High-Risk: 240 MG/DL and over 47 HDL INTERPRETATION: Undesirable: High Risk: Less than 40 MG/DL Desirable: Low Risk: Greater than 60 MG/DL 48 LDL INTERPRETATION: Low Risk Optimal Level: LDL Less than 100 MG/DL Near or Above Optimal: LDL 100-129 MG/DL Borderline High Risk: LDL 130-159 MG/DL High Risk: LDL 160-189 MG/DL Very High Risk: LDL Greater than 189 MG/DL 49 Anion gap measurement may be of limited value in the presence of any alkalosis, especially in a combined acid base disorder. . 50 Because ethnic data is not always readily [...] 15-29 5 Kidney failure <15 (or dialysis) 51 Anion gap measurement may be of limited value in the presence of any alkalosis, especially in a combined acid base disorder. . 52 Because ethnic data is not always readily [...] 15-29 5 Kidney failure <15 (or dialysis) 53 CHOLESTEROL INTERPRETATION: Desirable: Less than 200 MG/DL Borderline-High Risk: 200-239 MG/DL High-Risk: 240 MG/DL and over 54 HDL INTERPRETATION: Undesirable: High Risk: Less than 40 MG/DL Desirable: Low Risk: Greater than 60 MG/DL 55 LDL INTERPRETATION: Low Risk Optimal Level: LDL Less than 100 MG/DL Near or Above Optimal: LDL 100-129 MG/DL Borderline High Risk: LDL 130-159 MG/DL High Risk: LDL 160-189 MG/DL Very High Risk: LDL Greater than 189 MG/DL 56 Anion gap measurement may be of limited value in the presence of any alkalosis, especially in a combined acid base disorder. . 57 Note change in reference range as of 05/17/08. The change was based on recommendations from the [place] [employer]. 58 Because ethnic data is not always readily [...] 15-29 5 Kidney failure <15 (or dialysis) 59 Test Performed by: [facility] of Lab Med and Pathology [address] [place] [id number] [employer] Top Machine Operator: Chriss Manzanares III, M.D. 60 CHOLESTEROL INTERPRETATION: Desirable: Less than 200 MG/DL Borderline-High Risk: 200-239 MG/DL High-Risk: 240 MG/DL and over 61 HDL INTERPRETATION: Undesirable: High Risk: Less than 40 MG/DL Desirable: Low Risk: Greater than 60 MG/DL 62 LDL INTERPRETATION: Low Risk Optimal Level: LDL Less than 100 MG/DL Near or Above Optimal: LDL 100-129 MG/DL Borderline High Risk: LDL 130-159 MG/DL High Risk: LDL 160-189 MG/DL Very High Risk: LDL Greater than 189 MG/DL 63 Lymphopenia % 64 Anion gap measurement may be of limited value in the presence of any alkalosis, especially in a combined acid base disorder. . 65 Note change in reference range as of 05/17/08. The change was based on recommendations from the [place] [employer]. 66 Please note change in reference range effective 08 . 67 Because ethnic data is not always readily [...] 15-29 5 Kidney failure <15 (or dialysis) Procedures Date Code Description Status 03/17/2019 99972 Brief Emotional/Behav Assessment W/ Scoring Doc Per Completed Standard Inst 07/11/2018 94035 X-Ray, Lumbar Spine Complete, Obl Completed 06/01/2018 71732 Electrocardiogram Complete Completed 05/28/2017 42867 Electrocardiogram Complete Completed 05/06/2016 35103 Electrocardiogram Complete Completed 05/01/2015 03998 Electrocardiogram Complete Completed 05/01/2015 97980 Electrocardiogram Complete Completed 01/26/2014 89294 Electrocardiogram Complete Completed 06/26/2013 15709 Electrocardiogram Complete Completed 08/28/2011 41044 Electrocardiogram Complete Completed 03/03/2010 39781 Remove Skin Tags Up To 15 Completed Encounters Type Date Location Provider Dx Diagnosis Office Visit 04/24/2019 Main Office Kolby Hogue, F34.1 Dysthymic disorder 8:30a MDallin F41.1 Generalized anxiety disorder I10 Essential (primary) hypertension E78.00 Pure hypercholesterolemia, unspecified N52.9 Male erectile dysfunction, unspecified Office Visit 03/17/2019 2:00p Main Office Pamela Carlson Z02.89 Encounter for other P.A. administrative examinations Z23 Encounter for immunization Z41.8 Encntr for oth proc for purpose oth [facility] Z68.31 Body mass index (BMI) 31.0-31.9, adult Office Visit 10/24/2018 10:15a Main Office Kolby Hogue F41.1 Generalized anxiety M.D. disorder F34.1 Dysthymic disorder N52.9 Male erectile dysfunction, unspecified R06.00 Dyspnea, unspecified E66.9 Obesity, unspecified I10 Essential (primary) hypertension Office Visit 07/11/2018 10:15a Main Office Kolby Hogue M.D. M54.5 Low back pain L29.9 Pruritus, unspecified F41.1 Generalized anxiety disorder I10 Essential (primary) hypertension Office Visit 06/01/2018 9:00a Main Office Kolby Hogue I10 Essential (primary) M.D. hypertension L29.9 Pruritus, unspecified F41.1 Generalized anxiety disorder F34.1 Dysthymic disorder R61 Generalized hyperhidrosis R53.83 Other fatigue M25.50 Pain in unspecified joint M54.5 Low back pain Z23 Encounter for immunization E78.00 Pure hypercholesterolemia, unspecified Z41.8 Encntr for oth proc for purpose oth [facility] Office Visit 11/26/2017 9:30a Main Office Kolby Hogue, I10 Essential (primary) M.D. hypertension L29.9 Pruritus, unspecified E78.00 Pure hypercholesterolemia, unspecified F41.1 Generalized anxiety disorder F34.1 Dysthymic disorder B37.2 Candidiasis of skin and nail Office Visit 05/28/2017 Main Office Lennie E78.00 Pure hypercholesterolemia, 10:15a Rosario Jarrett unspecified I10 Essential (primary) hypertension L29.9 Pruritus, unspecified Z23 Encounter for immunization F34.1 Dysthymic disorder F41.1 Generalized anxiety disorder Office Visit 11/28/2016 9:30a Main Office Kolby Hogue, I10 Essential (primary) M.D. hypertension F34.1 Dysthymic disorder F41.1 Generalized anxiety disorder L29.9 Pruritus, unspecified E78.00 Pure hypercholesterolemia, unspecified Office Visit 05/06/2016 8:30a Main Office Kolby Hogue, F41.1 Generalized anxiety M.D. disorder F34.1 Dysthymic disorder I10 Essential (primary) hypertension L29.9 Pruritus, unspecified R68.82 Decreased libido E78.0 Pure hypercholesterolemia Office Visit 11/04/2015 9:30a Main Office Kolby Hogue, I10 Essential (primary) M.D. hypertension F41.1 Generalized anxiety disorder E78.0 Pure hypercholesterolemia L29.9 Pruritus, unspecified R53.83 Other fatigue R68.82 Decreased libido Office Visit 05/01/2015 9:15a Main Office Kolby Hogue, 401.1 Hypertension Benign M.D. 300.02 Anxiety Disorder Generalized 698.9 Pruritic Disorder Unspec 272.0 Hypercholesterolemia Pure Office Visit 10/31/2014 1:30p Main Office Kolby Hogue, 401.1 Hypertension Benign M.D. 300.02 Anxiety Disorder Generalized 272.0 Hypercholesterolemia Pure 698.9 Pruritic Disorder Unspec Office Visit 01/29/2014 3:00p Main Office Kolby Hogue, 780.2 Syncope & Collapse M.D. 401.1 Hypertension Benign 780.79 Malaise And Fatigue Other 272.0 Hypercholesterolemia Pure 300.02 Anxiety Disorder Generalized 784.0 Headache 786.50 Pain Chest Unspec 786.09 Dyspnea & Respiratory Abnormalities Other Office Visit 01/26/2014 10:30a Main Office Richmond Armstrong, 401.1 Hypertension Benign D.O. 780.4 Dizziness & Giddiness 780.79 Malaise And Fatigue Other Office Visit 11/10/2013 1:20p Main Office Arianne Rose 46[address] Pharyngitis Acute 461.8 Sinusitis Acute Other 786.2 Cough Office Visit 06/26/2013 10:30a Main Office Kolby Hogue 401.1 Hypertension Benign M.D. 272.0 Hypercholesterolemia Pure 300.02 Anxiety Disorder Generalized 790.21 Impaired Fasting Glucose V65.49 Counseling Other Spec v04.81 Need For Prophylactic Vaccination & Inoculation/Influenza v07.2 Prophylactic Immunotherapy V70.0 Examination General Medical Routine AT [facility] Care Facility 698.9 Pruritic Disorder Unspec Office Visit 08/29/2012 3:25p Main Office Pancho Armas 401.1 Hypertension Adelina Zheng M.D. 272.0 Hypercholesterolemia Pure 300.02 Anxiety Disorder Generalized 278.02 Overweight Office Visit 08/28/2011 2:45p Main Office Kolby Hogue, 401.1 Hypertension Benign M.DNima 300.02 Anxiety Disorder Generalized 272.0 Hypercholesterolemia Pure 786.09 Dyspnea & Respiratory Abnormalities Other 786.50 Pain Chest Unspec v04.81 Need For Prophylactic Vaccination & Inoculation/Influenza v07.2 Prophylactic Immunotherapy Office Visit 05/29/2011 Main Office Lennie 272.0 Hypercholesterolemia Pure 4:30p Rosario Jarrett 401.1 Hypertension Benign 790.21 Impaired Fasting Glucose 300.02 Anxiety Disorder Generalized 780.8 Generalized Hyperhidrosis 698.9 Pruritic Disorder Unspec Office Visit 02/20/2011 4:15p Main Office Kolby Hogue 401.1 Hypertension Benign MNimaDNima 300.02 Anxiety Disorder Generalized 780.8 Generalized Hyperhidrosis 272.0 Hypercholesterolemia Pure Office Visit 01/20/2011 4:00p Main Office Kolby Hogue 401.1 Hypertension Benign M.D. 300.02 Anxiety Disorder Generalized 272.0 Hypercholesterolemia Pure Office Visit 12/08/2010 1:15p Main Office Kolby Hogue, 401.1 Hypertension Benign M.D. 300.02 Anxiety Disorder Generalized 787.91 Diarrhea 780.79 Malaise And Fatigue Other Office Visit 11/19/2010 Main Office Lennie 682.3 Cellulitis & Abscess 4:45p Rosario Jarrett Upper Arm & Forearm Office Visit 07/29/2010 Main Office Lennie 272.0 Hypercholesterolemia Pure 4:30p Rosario Jarrett 401.1 Hypertension Benign 607.84 Impotence Organic Origin 719.41 Pain Joint Shoulder Region 300.02 Anxiety Disorder Generalized Office Visit 05/23/2010 2:45p Main Office Kolby Hogue, 401.1 Hypertension Benign M.D. 272.0 Hypercholesterolemia Pure 054.9 Herpes Simplex W/O Complication 780.79 Malaise And Fatigue Other Office Visit 03/03/2010 3:30p Main Office Kolby Hogue, 401.1 Hypertension Benign M.D. 272.0 Hypercholesterolemia Pure 601.1 Prostatitis Chronic 701.9 Hypertrophic & Atrophic Conditions Of Skin Unspec 704.9 Hair & Hair Follicle Diseases Unspec V06.1 Bvumsqygtr-Zgihrgs-Xyswijnc Combined (DTaP) V07.2 Prophylactic Immunotherapy 300.02 Anxiety Disorder Generalized Plan of Treatment Future Appointment(s):06/09/2019 10:15 am - Kolby Hogue M.D. at Main Jifoux3105/24/2019 9:15 am - Nurse's Schedule at Main Yjqtvy0703/17/2019 - Darleen Rose.Z02.89 Encounter for other administrative [id number] Encounter for immunizationComments:Counseling done regarding risks and benefits of vaccines, previous vaccine reactions and possible contraindications to vaccine discussed, and pt's questions answered. Pt agreed to vaccination. VIS sheets given for Td, Menactra, Hep A and MMR.Z41.8 Encounter for other procedures for purposes other than xgnuhE90.31 Body mass index (BMI) 31.0-31.9, adult
[2019-06-14 18:36] VITALS: BP 151/81
--- NOTE | 2019-06-14 19:11 | UC ---
Back Pain HPI - HPI Summary HPI Summary: 48-year-old male comes in with a chief complaint of low back pain. Pain started on June 18, 2019 after he was helping move a refrigerator. He did not have a specific sudden onset of pain. There was no fall or compression. Pains in the lumbar spine and into bilateral sacral iliac joints worse on the right than the left. Pain does not go down the legs or weakness no numbness no difficulty controlling urine or bowels. Pain is worse with movement. He has been taking ibuprofen. Is also seeing the chiropractor twice. - History of Current Complaint Chief Complaint: UCBackPain Stated Complaint: BACK PAIN/INJURY Time Seen by Provider: 06/14/19 18:51 Pain Intensity: 8 - Allergies/Home Medications Allergies/Adverse Reactions: Allergies Allergy/AdvReac Type Severity Reaction Status Date / Time No Known Allergies Allergy Verified 06/14/19 18:36 PMH/Surg Hx/FS Hx/Imm Hx Previously Healthy: Yes Cardiovascular History: Hypertension - Surgical History Surgical History: Yes Surgery Procedure, Year, and Place: shoulder surgery - Family History Known Family History: Positive: Non-Contributory - Social History Alcohol Use: Occasionally Substance Use Type: None Smoking Status (MU): Never Smoked Tobacco Review of Systems All Other Systems Reviewed And Are Negative: Yes Constitutional: Positive: Negative Skin: Positive: Negative Eyes: Positive: Negative ENT: Positive: Negative Respiratory: Positive: Negative Cardiovascular: Positive: Negative Gastrointestinal: Positive: Negative Genitourinary: Positive: Negative Motor: Positive: Negative Neurovascular: Positive: Negative Musculoskeletal: Positive: Other: - SEE HPI Neurological: Positive: Negative Psychological: Positive: Negative Is Patient Immunocompromised?: No Physical Exam Triage Information Reviewed: Yes Appearance: Well-Appearing, Well-Nourished, Pain Distress - MILD WITH ROM Vital Signs: Initial Vital Signs Temp 98.7 F 06/14/19 18:27 Pulse 64 06/14/19 18:27 Resp 18 06/14/19 18:27 BP 151/81 06/14/19 18:27 Pulse Ox 100 06/14/19 18:27 Vital Signs Reviewed: Yes Eye Exam: Normal Eyes: Positive: Conjunctiva Clear Neck: Positive: Supple Respiratory: Positive: Lungs clear, Normal breath sounds, No respiratory distress Cardiovascular: Positive: RRR Musculoskeletal: Positive: Other: - Tender to palpation midline of the lumbar spine from L1 to L5 and into both SI joints. Both legs have full range of motion full-strength no sensation deficits. Neurological: Positive: Alert Psychological: Positive: Age Appropriate Behavior Skin Exam: Normal Back Pain Course/Dx - Course Course Of Treatment: I discussed the x-rays with the patient I do not see any fractures or dislocations or any abnormalities. There is a question of a small foreign body primarily seen on the lateral that may have been in his clothing. Patient reports no history of foreign bodies. Radiologist reading is pending. Plan is to follow-up with sports medicine and I let him know that if he has any weakness numbness difficulty controlling urine or bowels pain needs to get ready evaluated again right away. - Differential Dx/Diagnosis Provider Diagnosis: Low back pain Discharge ED - Sign-Out/Discharge Documenting (check all that apply): Patient Departure All imaging exams completed and their final reports reviewed: No Studies - Discharge Plan Condition: Stable Disposition: HOME Prescriptions: Cyclobenzaprine TAB* [Flexeril 10 MG TAB*] 10 mg PO TID PRN #15 tab MDD 3 PRN Reason: Pain - Moderate predniSONE TAB* [Deltasone 20 MG TAB*] 40 mg PO DAILY #10 tab Patient Education Materials: Acute Low Back Pain (ED), Lower Back Exercises (ED ) Referrals: Kolby Hogue MD [Primary Care Provider] - [facility] [Provider Group] Additional Instructions: FOLLOW UP WITH SPORTS MEDICINE. GO TO THE EMERGENCY DEPARTMENT IF WORSE; WEAKNESS, NUMBNESS, DIFFICULTY CONTROLLING BOWEL OR BLADDER, PAIN OR ANY QUESTIONS OR CONCERNS. - Billing Disposition and Condition Condition: STABLE Disposition: Home
== END 2019-06-14 19:42 | disposition home or self-care (01) ==
LOC: UCCORT 17:29
DX: M54.5 Low back pain (principal); I10 Essential (primary) hypertension
CPT/HCPCS: 72114; 99212; G0463

== ENCOUNTER 2019-09-21 11:25 | Emergency (ER) | payer OTHER ==
[2019-09-21 13:11] VITALS: BP 145/93
--- NOTE | 2019-09-21 13:18 | UC ---
Respiratory Complaint HPI - HPI Summary HPI Summary: 49 yo male with cough and sinus pressure /post nasal drip x 2 weeks low energy/fatigue no cp or sob no f/c + myalgias - History of Current Complaint Chief Complaint: UCRespiratory Stated Complaint: CONGESTION/GERONIMO/FATIGUE Hx Obtained From: Patient Onset/Duration: Gradual Onset Timing: Constant Severity Initially: Mild Severity Currently: Moderate Pain Intensity: 4 Pain Scale Used: 0-10 Numeric Character: Cough: Nonproductive Aggravating Factors: Nothing Alleviating Factors: Nothing Associated Signs And Symptoms: Negative: Dyspnea, Fever, Chills, Pleuritic Chest Pain, Wheezing, Hemoptysis, Dizziness, Calf Pain, Calf Swelling, Edema, URI, Nasal Congestion, Hoarseness, Sinus Discomfort - Allergies/Home Medications Allergies/Adverse Reactions: Allergies Allergy/AdvReac Type Severity Reaction Status Date / Time No Known Allergies Allergy Verified 09/21/19 13:07 Home Medications: Home Medications Doxepin HCl 50 mg PO QPM PRN 09/21/19 [History Confirmed 09/21/19] Losartan Potassium [Cozaar] 50 mg PO DAILY 09/21/19 [History Confirmed 09/21/19] Rosuvastatin (NF) [Crestor] 20 mg PO DAILY 09/21/19 [History Confirmed 09/21/19] Tadalafil [Cialis] 20 mg PO SEE INSTRUCTIONS PRN 09/21/19 [History Confirmed ] busPIRone TAB* [Buspar TAB*] 10 mg PO BID 09/21/19 [History Confirmed 09/21/19] PMH/Surg Hx/FS Hx/Imm Hx Previously Healthy: Yes Endocrine History: Dyslipidemia Cardiovascular History: Hypertension - Surgical History Surgical History: Yes Surgery Procedure, Year, and Place: Left "Bankheart Lesion" Shoulder, ~2008, [place] - Family History Known Family History: Positive: Cardiac Disease, Hypertension, Other - mom of brain anurysm, Non-Contributory - Social History Alcohol Use: Occasionally Substance Use Type: None Smoking Status (MU): Never Smoked Tobacco Review of Systems All Other Systems Reviewed And Are Negative: Yes Constitutional: Positive: Fatigue Skin: Positive: Negative Eyes: Positive: Negative ENT: Positive: Ear Ache, Nasal Discharge, Sinus Congestion, Sinus Pain/ Tenderness Respiratory: Positive: Cough Cardiovascular: Positive: Negative Gastrointestinal: Positive: Negative Genitourinary: Positive: Negative Motor: Positive: Negative Neurovascular: Positive: Negative Musculoskeletal: Positive: Negative Neurological: Positive: Negative Psychological: Positive: Negative Physical Exam Triage Information Reviewed: Yes Appearance: Well-Appearing, No Pain Distress, Well-Nourished Vital Signs: Initial Vital Signs Temp 97.7 F 09/21/19 13:05 Pulse 76 09/21/19 13:05 Resp 16 09/21/19 13:05 BP 145/93 09/21/19 13:05 Pulse Ox 99 09/21/19 13:05 Vital Signs Reviewed: Yes Eyes: Positive: Conjunctiva Clear ENT: Positive: Sinus tenderness. Negative: Hearing grossly normal, Nasal congestion, Nasal drainage, Trismus, Muffled voice, Hoarse voice Neck: Positive: Supple, Nontender, No Lymphadenopathy Respiratory: Positive: Lungs clear, Normal breath sounds, No respiratory distress, No accessory muscle use Cardiovascular: Positive: RRR, No Murmur Abdomen Description: Positive: Nontender Bowel Sounds: Positive: Present Musculoskeletal: Positive: ROM Intact, No Edema Neurological: Positive: Alert Psychological Exam: Normal Skin Exam: Normal Respiratory Course/Dx - Differential Dx/Diagnosis Provider Diagnosis: Acute sinusitis Discharge ED - Sign-Out/Discharge Documenting (check all that apply): Patient Departure All imaging exams completed and their final reports reviewed: No Studies - Discharge Plan Condition: Stable Disposition: HOME Prescriptions: Amoxicillin PO (*) [Amoxicillin 875 MG (*)] 875 mg PO BID #20 tab Fluticasone NASAL SPRAY 50MCG* [Flonase NASAL SPRAY 50MCG*] 2 spray BOTH NARES BID #1 btl Patient Education Materials: Sinusitis (ED) Referrals: Kolby Hogue MD [Primary Care Provider] - If Needed (recheck in 1-2 weeks if not completely better) - Billing Disposition and Condition Condition: STABLE Disposition: Home
== END 2019-09-21 13:39 | disposition home or self-care (01) ==
LOC: UCCORT 11:25
DX: J01.90 Acute sinusitis, unspecified (principal); H92.09 Otalgia, unspecified ear; R53.83 Other fatigue; I10 Essential (primary) hypertension; E78.5 Hyperlipidemia, unspecified; Z79.899 Other long term (current) drug therapy
CPT/HCPCS: 99212; G0463